=== PATIENT | male | born 1950 | race Two or more races ===

== ENCOUNTER 2020-09-20 10:06 | Emergency (ER) | payer MEDICARE, MEDICAID ==
[~2020-09-20] VITALS: Ht 162.6 cm; Wt 77.1 kg
[2020-09-20 10:20] VITALS: BP 149/92
[2020-09-20] MEDS ORDERED: cefTRIAXone SOD 1,000 MG VL IM ONE (11:00)
[2020-09-20] MEDS ORDERED: DexAMETHasone SOD PHOS 10MG/1ML VIAL INJ IM ONE (11:00)
== END 2020-09-20 12:09 | disposition home or self-care (01) ==
LOC: ER 10:06
DX: U07.1 COVID-19 (principal); J12.82 Pneumonia due to coronavirus disease 2019
CPT/HCPCS: 71045; 93005; 96372; 99284; J0696; J1100

== ENCOUNTER 2024-02-17 09:56 | Emergency (ER) | payer MEDICARE, MEDICAID ==
[~2024-02-17] VITALS: Ht 170.2 cm; Wt 79.0 kg
[2024-02-17 10:43] LABS: Basophils # (auto) 0.1 10 ^3/uL (0-0.2); Basophils % (auto) 0.7 % (0.0-2.0); Eosinophils # (auto) 0.2 10 ^3/uL (0-0.8); Eosinophils % (auto) 2.7 % (0.0-7.0); Hematocrit 43.3 % (41.0-53.0); Hemoglobin 14.5 g/dL (13.5-17.5); Lymphocytes # (auto) 2.6 10 ^3/uL (0.4-5.4); Mean Corpuscular Hemoglobin 28.5 pg (28.0-32.0); Mean Corpuscular Hgb Conc. 33.5 g/dL (32.0-36.0); Mean Corpuscular Volume 85.2 fL (80.0-100.0); Monocytes # (auto) 0.5 10 ^3/uL (0-1.3); Monocytes % (auto) 6.7 % (0.0-12.0); Neutrophils # (auto) 3.7 10 ^3/uL (1.6-8.6); Neutrophils % (auto) 52.9 % (37.0-80.0); Nucleated Red Blood Cells % 0.1 %; Red Blood Cells 5.08 10^6/uL (4.5-5.90); Red Cell Distribution Width 13.8 % (11.8-14.3)
[2024-02-17 10:54] LABS: Chloride 105 mmol/L (98-107); Sodium 138 mmol/L (136-145)
[2024-02-17 10:55] LABS: Anion Gap 6 (5-15); Calcium 9.7 mg/dL (8.5-10.1); Carbon Dioxide 27 mmol/L (20-30)
[2024-02-17 11:00] LABS: BUN/Creatinine Ratio 13.4 (10.0-20.0); Blood Urea Nitrogen 11 mg/dL (9-23); Glucose 132 mg/dL (74-106)
[2024-02-17 11:02] LABS: Urine Bacteria None Seen /hpf (None Seen)
[2024-02-17 11:21] LABS: Urine Blood Negative /uL (Negative); Urine Clarity Clear (Clear); Urine Color Light-Yellow (Yellow); Urine Protein, UAD Negative (Negative); Urine Specific Gravity 1.016 (1.001-1.035); Urine Urobilinogen Normal (Negative); Urine WBC <1 /hpf (0 - 3); Urine pH 6.5 (5.0-9.0)
[2024-02-17 12:57] LABS: Lipase 51 U/L (12-53)
[2024-02-17] MEDS: ONDANSETRON HCL 4 MG/2 ML VIAL IV ONE (14:30)
[2024-02-17] MEDS: KETOROLAC TROMETH 30 MG/ML 1ML VIAL IV ONE (14:34)
[2024-02-17] MEDS: SODIUM CHLORIDE 0.9% 1,000 ML IVB ONE (14:35)
[2024-02-17 14:42] VITALS: PULSE 71; RESP 16; O2SAT 96
[2024-02-17 14:53] LABS: INR 1.14 (0.9-1.15); Partial Thromboplastin Time 27.9 SEC (24.5-34.5)
[2024-02-17] MEDS: IOHEXOL 300 MG/ML 100ML BOTTLE IJ ONE ×2 (14:54)
[2024-02-17] MEDS ORDERED: PANT40TA2 PO (17:03)
[2024-02-17] MEDS ORDERED: ACET-1304 PO (17:03)
[2024-02-17] MEDS ORDERED: METO-281 PO (17:03)
[2024-02-17 17:21] VITALS: BP 159/72; PULSE 60; RESP 18; TEMP 97.8; O2SAT 97
== END 2024-02-17 17:33 | disposition home or self-care (01) ==
LOC: ER 09:57
DX: R10.9 Unspecified abdominal pain (principal); E11.9 Type 2 diabetes mellitus without complications; I10 Essential (primary) hypertension; E78.5 Hyperlipidemia, unspecified; Z90.49 Acquired absence of other specified parts of digestive tract
CPT/HCPCS: 36415; 71045; 74177; 80048; 81001; 83690; 84484; 85025; 85610; 85730; 93005; 96361; 96374; 96375; 99285; J1885; J2405; J7030; Q9967